=== PATIENT | female | born 1985 | race Caucasian/White ===

== ENCOUNTER 2017-04-10 15:30 | Emergency (ER) | payer OTHER ==
[~2017-04-10] VITALS: Ht 162.6 cm; Wt 92.7 kg
[~2017-04-10 15:30] MED LIST: ENDOCET 5-3251 EACH PO; Motrin PO; NATALCARE RX1 TABLE1 PO; SENOKOT S,PE1 TABLET PO
[2017-04-10] MEDS ORDERED: MOTRIN600 MG PO (16:35)
[2017-04-10 17:00] VITALS: BP 124/86
== END 2017-04-10 17:03 | disposition home or self-care (01) ==
LOC: EME → EDBD 15:30 → EME 17:03
DX: S93.401A Sprain of unspecified ligament of right ankle, initial encounter (principal); S93.602A Unspecified sprain of left foot, initial encounter; F17.200 Nicotine dependence, unspecified, uncomplicated; W18.30XA Fall on same level, unspecified, initial encounter
CPT/HCPCS: 73610; 73630; 99281; 99284